=== PATIENT | female | born 1990 | race Hispanic/Latino ===

== ENCOUNTER 2018-08-16 19:31 | Emergency (ER) | payer SELFPAY ==
[2018-08-16 20:13] VITALS: RESP 16; O2SAT 100
[2018-08-16] MEDS ORDERED: Sodium Chloride 0.9% 1,000 ML IV STA (20:35)
[2018-08-16] MEDS ORDERED: Iohexol 240 (50 ml) PO ONE (20:36)
[2018-08-16 20:58] LABS: SQUAMOUS EPITHIAL < 1 /hpf (0-5); URINE BILIRUBIN NEGATIVE (NEGATIVE); URINE BLOOD NEGATIVE (NEGATIVE); URINE CLARITY CLEAR (Clear); URINE COLOR STRAW (YELLOW); URINE GLUCOSE (UA) NEG (Normal); URINE LEUKOCYTE ESTERASE NEG Leu/uL (Negative); URINE PROTEIN NEGATIVE (NEGATIVE); URINE UROBILINOGEN 0.2-1.0 mg/dL (0.2-1.0)
[2018-08-16 21:13] LABS: BASO % 0.7 % (0.0-2.0); EOS # 0.2 K/uL (0.0-0.7); EOS % 3.3 % (0.0-4.0); HEMOGLOBIN 11.8 g/dL (12.0-16.0); LYMPH # 2.3 K/uL (1.0-4.3); LYMPH % 39.5 % (20.0-40.0); MEAN CELL VOLUME 67.2 fl (81.0-99.0); MEAN CORPUSCULAR HEMOGLOBIN 21.2 pg (27.0-31.0); MEAN CORPUSCULAR HGB CONC 31.5 g/dL (33.0-37.0); MEAN PLATELET VOLUME 9.7 fl (7.2-11.7); MONO # 0.6 K/uL (0.0-0.8); MONO % 10.5 % (0.0-10.0); NEUT # 2.7 K/uL (1.8-7.0); RBC 5.55 Mil/uL (3.80-5.20); RED CELL DISTRIBUTION WIDTH 15.4 % (11.5-14.5); WHITE BLOOD COUNT 5.9 K/uL (4.8-10.8)
--- NOTE | 2018-08-16 21:23 | ED PDOC ---
HPI: Abdomen Time Seen by Provider: 08/16/18 20:16 Chief Complaint (Nursing): Abdominal Pain Chief Complaint (Provider): abdominal pain History Per: Patient History/Exam Limitations: no limitations Onset/Duration Of Symptoms: Days (x1) Current Symptoms Are (Timing): Still Present Associated Symptoms: Fever, Chills Additional Complaint(s): Didi Mason is a 27 year old female, with a past medical history of ovarian cysts, who presents to the emergency department complaining of abdominal pain that started earlier this morning. Patient states pain is located on the right side and radiates to her back. She went to Dr. Block, LENS GENERATOR, yesterday for removal of IUD which was successfully removed in his office. However, patient states pain started today associated with fever, chills and poor appetite. Patient reports poor appetite but is actively eating as provider interviewed her. She was seen at the beginning of July for similar pain and was discharged. She states she did not have ovarian cysts at that time. She denies any other medical complaints. LENS GENERATOR: Dr. Block Past Medical History Reviewed: Historical Data, Nursing Documentation, Vital Signs Vital Signs: Last Vital Signs Temp 98.4 F 08/16/18 20:13 Pulse 84 08/16/18 20:13 Resp 16 08/16/18 20:13 BP 115/73 08/16/18 20:13 Pulse Ox 100 08/16/18 20:13 - Medical History Other PMH: ovarian cysts - Surgical History Surgical History: Appendectomy - Family History Family History: States: Unknown Family Hx - Home Medications Home Medications: Ambulatory Orders Medication Instructions Recorded Naproxen [Naprosyn] 500 mg PO Q12 #14 tab 08/17/18 - Allergies Allergies/Adverse Reactions: Allergies Allergy/AdvReac Type Severity Reaction Status Date / Time No Known Allergies Allergy Verified 08/16/18 20:10 Review of Systems ROS Statement: Except As Marked, All Systems Reviewed And Found Negative Constitutional: Positive for: Fever, Chills Gastrointestinal: Positive for: Abdominal Pain (Right side) Physical Exam - Reviewed Nursing Documentation Reviewed: Yes Vital Signs Reviewed: Yes - Physical Exam Appears: Positive for: No Acute Distress Head Exam: Positive for: ATRAUMATIC, NORMAL INSPECTION, NORMOCEPHALIC Skin: Positive for: Normal Color, Warm, Dry Eye Exam: Positive for: Normal appearance, EOMI, PERRL Neck: Positive for: Painless ROM, Supple Cardiovascular/Chest: Positive for: Regular Rate, Rhythm. Negative for: Murmur Respiratory: Positive for: Normal Breath Sounds. Negative for: Respiratory Distress Gastrointestinal/Abdominal: Positive for: Tenderness (RLQ) Back: Positive for: Normal Inspection. Negative for: L CVA Tenderness, R CVA Tenderness, Vertebral Tenderness Extremity: Positive for: Normal ROM (upper and lower extremities). Negative for: Deformity, Swelling Neurologic/Psych: Positive for: Alert, Oriented - Laboratory Results Result Diagrams: 08/16/18 21:01 08/16/18 21:01 - ECG O2 Sat by Pulse Oximetry: 100 (RA) Pulse Ox Interpretation: Normal Medical Decision Making Medical Decision Making: Time: 20:16 Initial Impression: 27 y/o female with RLQ pain in setting of previous a ppendectomy and ovarian cysts Initial Plan: --Abd Pelvis PO & IV Contrast [CT] --CMP --Lact Acid --Lipase --Urine --Urine dipstick --CBC w/ differential --Sodium Chloride 1,000 ml IV 1,000 mls/hr --Omnipaque 240 50 ml PO --Toradol 30 mg IV --Blood culture --Urinalysis --Reevaluation 23:58 Abd Pelvis PO & IV Contrast [CT] FINDINGS: LUNG BASES: Pulmonary base is well-aerated LIVER: Unremarkable. GALLBLADDER AND BILE DUCTS: The gallbladder appears within normal limits. No radioopaque gallstones are seen. No biliary ductal dilatation is evident. PANCREAS: Unremarkable. SPLEEN: Unremarkable. ADRENAL GLANDS: Unremarkable. KIDNEYS, URETERS, AND BLADDER: The kidneys appear within normal limits. There is no hydronephrosis or hydroureter. No urinary calculi are seen. STOMACH AND BOWEL: Iintestinal bowel gas pattern nonobstructive No evidence of acute diverticulitis APPENDIX: There is an appendicolith at the distal end of the appendix without dilatation or surrounding inflammatory changes see series 3 image 127. PERITONEUM: No free fluid. No free air. LYMPH NODES: No lymphadenopathy is evident. VASCULATURE: No evidence of abdominal aortic aneurysm. BONES: No aggressive appearing osseous lesion. No acute osseous pathology evident. MISCELLANEOUS: Possible recently ruptured right ovarian cyst see image 149 series 3. Total exam DLP equals 320.10. IMPRESSION: 1. Iintestinal bowel gas pattern nonobstructive 2. There is an appendicolith at the distal end of the appendix without dilatation or surrounding inflammatory changes see series 3 image 127. 3. No evidence of acute diverticulitis 4. Possible recently ruptured right ovarian cyst see image 149 series 3. 5. Pulmonary base is well-aerated 6. Total exam DLP equals 320.10. 00:35 --labs reviewed and revealed no clinically significant abnormalities. --Surgical consult was called due to CT report demonstrating appendicolith in her appendix which contradicts her account of having an appendectomy 3 years ago. 01:38 --Patient was evaluated by surgery and cleared for discharge home. Diagnoses are ovarian cyst and abdominal pain. Scribe Attestation: Documented by Jaylan Silva, acting as a scribe for Bakari Lew MD. Provider Scribe Attestation: All medical record entries made by the Scribe were at my direction and personally dictated by me. I have reviewed the chart and agree that the record accurately reflects my personal performance of the history, physical exam, medical decision making, and the department course for this patient. I have also personally directed, reviewed, and agree with the discharge instructions and disposition. Disposition - Clinical Impression Clinical Impression: Ovarian cyst - Patient ED Disposition Is Patient to be Admitted: No - Disposition Disposition: Routine/Home Disposition Time: 00:35 Condition: STABLE Prescriptions: Naproxen [Naprosyn] 500 mg PO Q12 #14 tab Instructions: Ovarian Cysts Forms: [employer] (Serbian)
[2018-08-16 21:27] LABS: ALB/GLOB RATIO 1.1 (1.0-2.1); ALBUMIN 4.3 g/dL (3.5-5.0); ALT/SGPT 30 U/L (9-52); AST/SGOT 22 U/L (14-36); BLOOD UREA NITROGEN 9 mg/dl (7-17); CALCIUM 9.3 mg/dL (8.4-10.2); GFR NON-AFRICAN AMERICAN > 60; LIPASE 104 U/L (23-300)
[2018-08-16] MEDS ORDERED: Iohexol 300 100 ML IJ ONE (22:33)
[2018-08-16] MEDS ORDERED: Sodium Chloride 0.9% 50 ML IV ONE (22:33)
--- NOTE | 2018-08-17 01:14 | CP.PCM.CON ---
History of Present Illness - History of Present Illness History of Present Illness: Surgery: Dr. Luna CC: Abd pain HPI: 27F w. pmh of ovarian cysts and appendectomy 3 yrs ago at [facility] [place] presents w. RLQ pain for the past 3-4 months. Pain is intermittent. Pt cannot identify any precipitating factors. She denies N/V, no changes in appetite. She states that she had low grade fever of 101 yesterday, no chills. She states that she has had some white vaginal discharge over the past 2 days, she also reports dysuria. She states that urine has been normal odor and color. CT was reviewed, pt appears to have appendiceal stump with fecalith, however there are no adjacent inflammatory changes to suggest stump appendicitis, but there are findings suggestive of recent ruptured ovarian cyst. PMH: ovarian cysts PSH: appendectomy Meds: none NKDA Social: No ETOH/tobacco/drugs Fhx: non-contributory Review of Systems - Review of Systems All systems: reviewed and no additional remarkable complaints except Past Patient History - Past Social History Smoking Status: Never Smoked - GENITOURINARY/GYNECOLOGICAL Other/Comment: Ovarian cysts - PSYCHIATRIC Hx Substance Use: No - SURGICAL HISTORY Hx Appendectomy: Yes - ANESTHESIA Hx Anesthesia: Yes Meds Home Medications: Home Medication List Medication Instructions Recorded Confirmed Type Naproxen [Naprosyn] 500 mg PO Q12 #14 tab 08/17/18 Rx Allergies/Adverse Reactions: Allergies Allergy/AdvReac Type Severity Reaction Status Date / Time No Known Allergies Allergy Verified 08/16/18 20:10 Physical Exam - Constitutional Appears: Non-toxic, No Acute Distress - Head Exam Head Exam: ATRAUMATIC, NORMOCEPHALIC - Eye Exam Eye Exam: EOMI - ENT Exam ENT Exam: Mucous Membranes Moist - Neck Exam Neck exam: Positive for: Full Rom - Respiratory Exam Respiratory Exam: NORMAL BREATHING PATTERN. absent: Accessory Muscle Use, Respiratory Distress - Cardiovascular Exam Cardiovascular Exam: REGULAR RHYTHM - GI/Abdominal Exam GI & Abdominal Exam: Soft, Tenderness (RLQ). absent: Distended, Firm, Guarding, Rebound, Rigid - Extremities Exam Extremities exam: Negative for: calf tenderness, pedal edema - Neurological Exam Neurological exam: Alert, Oriented x3 - Psychiatric Exam Psychiatric exam: Normal Affect, Normal Mood - Skin Skin Exam: Dry, Normal Color, Warm Results - Vital Signs Recent Vital Signs: Last Vital Signs Temp 98.4 F 08/16/18 20:13 Pulse 84 08/16/18 20:13 Resp 16 08/16/18 20:13 BP 115/73 08/16/18 20:13 Pulse Ox 100 08/17/18 00:49 - Labs Result Diagrams: 08/16/18 21:01 08/16/18 21:01 Labs: Laboratory Results - last 24 hr 08/16/18 08/16/18 08/16/18 20:47 21:01 21:01 WBC 5.9 RBC 5.55 H Hgb 11.8 L Hct 37.3 MCV 67.2 L MCH 21.2 L MCHC 31.5 L RDW 15.4 H Plt Count 250 MPV 9.7 Neut % (Auto) 46.0 L Lymph % (Auto) 39.5 Lamb % (Auto) 10.5 H Eos % (Auto) 3.3 Baso % (Auto) 0.7 Neut # (Auto) 2.7 Lymph # (Auto) 2.3 Lamb # (Auto) 0.6 Eos # (Auto) 0.2 Baso # (Auto) 0.0 Sodium 140 Potassium 3.7 Chloride 105 Carbon Dioxide 26 Anion Gap 13 BUN 9 Creatinine 0.5 L Est GFR ( Amer) > 60 Est GFR (Non-Af Amer) > 60 Random Glucose 97 Lactic Acid Calcium 9.3 Total Bilirubin 0.2 AST 22 ALT 30 Alkaline Phosphatase 53 Total Protein 8.1 Albumin 4.3 Globulin 3.8 Albumin/Globulin Ratio 1.1 Lipase 104 Urine Color Straw Urine Clarity Clear Urine pH 7.0 Ur Specific Vicco 1.011 Urine Protein Negative Urine Glucose (UA) Neg Urine Ketones Negative Urine Blood Negative Urine Nitrate Negative Urine Bilirubin Negative Urine Urobilinogen 0.2-1.0 Ur Leukocyte Esterase Neg Urine RBC (Auto) < 1 Urine Microscopic WBC < 1 Ur Squamous Epith Cells < 1 08/16/18 21:01 WBC RBC Hgb Hct MCV MCH MCHC RDW Plt Count MPV Neut % (Auto) Lymph % (Auto) Lamb % (Auto) Eos % (Auto) Baso % (Auto) Neut # (Auto) Lymph # (Auto) Lamb # (Auto) Eos # (Auto) Baso # (Auto) Sodium Potassium Chloride Carbon Dioxide Anion Gap BUN Creatinine Est GFR ( Amer) Est GFR (Non-Af Amer) Random Glucose Lactic Acid 0.9 Calcium Total Bilirubin AST ALT Alkaline Phosphatase Total Protein Albumin Globulin Albumin/Globulin Ratio Lipase Urine Color Urine Clarity Urine pH Ur Specific Vicco Urine Protein Urine Glucose (UA) Urine Ketones Urine Blood Urine Nitrate Urine Bilirubin Urine Urobilinogen Ur Leukocyte Esterase Urine RBC (Auto) Urine Microscopic WBC Ur Squamous Epith Cells - Imaging and Cardiology CT scan - abdomen Status: Image reviewed by me, Report reviewed by me Assessment & Plan - Assessment and Plan (Free Text) Assessment: 27F w. RLQ pain, likely 2/2 ovarian cyst -CT reviewed: Pt appears to have appendiceal stump w. fecalith, however no surrounding inflammatory changes to suggest stump appendicitis -No leukocytosis -No surgical intervention at this time -If pain persists, pt can f/u in office to discuss interval appendectomy -d/w attending Zemaitis PGY4
[2018-08-17 01:42] VITALS: BP 119/73; PULSE 85; TEMP 98.7
--- NOTE | 2018-08-17 10:41 | US ---
Date of service: 08/16/2018 HISTORY: right pelvic pain COMPARISON: None available. TECHNIQUE: Grayscale, color Doppler and spectral evaluation of the pelvis performed transvaginally. FINDINGS: UTERUS: Measures 8.9 x 4.0 x 6.0 cm. Anteverted. Normal in size and appearance. 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 No fibroid or other mass lesion seen. ENDOMETRIUM: Measures 10 mm in diameter. Unremarkable. CERVIX: No cervical abnormality identified. RIGHT OVARY: Measures 3.6 x 1.6 x 3.5 cm. No solid mass. Normal flow. LEFT OVARY: Measures 2.3 x 1.7 x 1.8 cm. No solid mass. Normal flow. FREE FLUID: No significant free fluid noted. OTHER FINDINGS: None. IMPRESSION: Unremarkable pelvic ultrasound. 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
--- NOTE | 2018-08-17 11:29 | CT ---
Date of service: 08/16/2018 PROCEDURE: CT Abdomen and Pelvis with contrast HISTORY: abd pain COMPARISON: None. TECHNIQUE: Contrast dose: 90 ml Omnipaque 300 Radiation dose: Total exam DLP = 320.1 mGy-cm. This CT exam was performed using one or more of the following dose reduction techniques: Automated exposure control, adjustment of the mA and/or kV according to patient size, and/or use of iterative reconstruction technique. FINDINGS: LOWER THORAX: Unremarkable. LIVER: Mild hepatic steatosis. No gross lesion or ductal dilatation. GALLBLADDER AND BILE DUCTS: Unremarkable. PANCREAS: Unremarkable. No gross lesion or ductal dilatation. SPLEEN: Unremarkable. ADRENALS: Unremarkable. No mass. KIDNEYS AND URETERS: Unremarkable. No hydronephrosis. No solid mass. VASCULATURE: Unremarkable. No aortic aneurysm. No aortic atherosclerotic calcification or mural plaque present. BOWEL: Unremarkable. No obstruction. No gross mural thickening. APPENDIX: Appendicoliths within an otherwise normal appendix. PERITONEUM: Unremarkable. No free fluid. No free air. LYMPH NODES: Unremarkable. No enlarged lymph nodes. BLADDER: Unremarkable. REPRODUCTIVE: Mullerian duct anomaly, likely bicornuate uterus. BONES: No acute fracture. OTHER FINDINGS: None. IMPRESSION: No acute abdominal pelvic pathology. Appendicolith without appendiceal thickening or surrounding inflammatory change. The patient may be predisposed to developing acute appendicitis in the future. 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
== END 2018-08-17 02:00 | disposition home or self-care (01) ==
LOC: H.ER 19:31
DX: N83.209 Unspecified ovarian cyst, unspecified side (principal); K38.1 Appendicular concretions
CPT/HCPCS: 74177; 76830; 80053; 81003; 81025; 83605; 83690; 85025; 87040; 96360; 99284; J1885; J7030; Q9966; Q9967